=== PATIENT | male | born 1950 | race Caucasian/White ===

== ENCOUNTER 2019-05-27 09:41 | Day surgery (SDC) | payer MEDICARE, BC ==
[2019-05-26 12:13] VITALS: BMI 23.6
[~2019-05-27 09:41] MED LIST: EPINEPHrine 0.3 MG in Ophthalmic Irrigation Solution 500 ML IVP SCH
[2019-05-27] MEDS ORDERED: Cyclopentolate 1% Opth Drop 2 ML BOT ONE (09:54)
[2019-05-27] MEDS ORDERED: Phenylephrine 2.5% Ophth Soln 5 ML BOT ONE (09:54)
[2019-05-27] MEDS ORDERED: Midazolam HCl 2 mg/2 ml Vial ONE (13:23)
[2019-05-27] MEDS ORDERED: Fentanyl 100 MCG/2 ML VIAL ONE ×2 (13:23→14:33)
--- NOTE | 2019-05-27 15:33 | OP ---
DATE OF PROCEDURE: 05/27/2019 PRINCIPAL PREOPERATIVE DIAGNOSIS: Macula off rhegmatogenous retinal detachment, right eye. POSTOPERATIVE DIAGNOSIS: Macula off rhegmatogenous retinal detachment, right eye. NAME OF PROCEDURES PERFORMED: 1. 25-gauge pars plana vitrectomy, right eye. 2. Rhegmatogenous retinal detachment repair, right eye. ESTIMATED BLOOD LOSS: None. SPECIMENS REMOVED: None. COMPLICATIONS: None. ANESTHESIA: MAC with retrobulbar block. SUMMARY OF OPERATION: The patient was identified in the preoperative holding area, where the correct eye being the right eye was marked for surgery. He was taken to the operating room, where MAC anesthesia was induced. A retrobulbar block was administered to the right eye. The block consisted of 1:1 ratio of 4% lidocaine and 0.75% Marcaine. A total of 5 mL was administered. The right eye was then prepped and draped in the usual sterile ophthalmic fashion for surgery. A wire lid speculum was placed. A standard 25-gauge pars plana vitrectomy platform was fashioned with trocars placed approximately 3.5 mm from the limbus. The infusion was noted to be within the vitreous cavity prior to being turned on to an infusion pressure of 30 mmHg. The light pipe Micro vitrector were introduced in the eye under visualization of BIOM viewing system. A macula-off rhegmatogenous retinal detachment was noted from approximately 5 o'clock to 11 o'clock. Numerous defects were noted throughout the retina including 1 at approximately 5:38 and 10 o'clock as well as small defect at 11 o'clock. A careful core and peripheral shave vitrectomy were performed with use of scleral depression, taking care to relieve all traction off the aforementioned defects. Following vitrectomy, all defects were marked with endo cautery followed by creation of a drainage retinotomy with the endo cautery was applied followed by opening with a flute needle. An air-fluid exchange was performed, which allowed for complete flattening of the retina. Endolaser was used to provide barricade around all of the aforementioned defects as well as drainage retinotomy site and peripheral cerclage in the typical fashion with sparing of the 3 and 9 o'clock range. Following Endolaser, the flute needle was reintroduced in the eye to remove any residual subretinal fluid. Subsequently, an air-gas exchange was performed with 15% C3F8. The cannulas were sequentially removed with suturing of the superonasal and inferotemporal sclerotomies with 8-0 Vicryl suture. Following suturing, all sclerotomies were noted to be gas tight. Subconjunctival Ancef and Kenalog were injected. The wire lid speculum was removed followed by application of TobraDex ophthalmic ointment and light patch and shield. The patient tolerated the procedure well and was taken to outpatient recovery area in good condition. Job ID: [id number]
== END 2019-05-27 15:39 | disposition home or self-care (01) ==
LOC: SDC 09:41
PROVIDERS: ATTEND Ophthalmology Retina Specialist
PROC: 08943ZZ Drainage of Right Vitreous, Percutaneous Approach (ICD-10-PCS; principal; 2019-05-27)
DX: H33.001 Unspecified retinal detachment with retinal break, right eye (principal); I10 Essential (primary) hypertension
CPT/HCPCS: J0171; J2250; J3010

== ENCOUNTER 2019-07-13 07:15 | Day surgery (SDC) | payer MEDICARE, BC ==
[2019-07-12 11:11] VITALS: BMI 22.6
[~2019-07-13 07:15] MED LIST changes: +EPINEPHrine 0.3 MG in Ophthalmic Irrigation Solution 500 ML IRR SCH; -EPINEPHrine 0.3 MG in Ophthalmic Irrigation Solution 500 ML IVP SCH; +Fentanyl 100 MCG/2 ML VIAL ONE; +Midazolam HCl 2 mg/2 ml Vial ONE
[2019-07-13] MEDS ORDERED: Phenylephrine 2.5% Ophth Soln 5 ML BOT ONE (07:55)
[2019-07-13] MEDS ORDERED: Cyclopentolate 1% Opth Drop 2 ML BOT ONE (07:55)
[2019-07-13] MEDS ORDERED: Lidocaine 4% PF 5 ML AMP ONE (11:14)
[2019-07-13] MEDS ORDERED: Triamcinolone 40 MG/ML VIAL ONE (11:14)
[2019-07-13] MEDS ORDERED: Maxitrol 0.1% Opth Oint 3.5 GM TUBE ONE (11:14)
[2019-07-13] MEDS ORDERED: CEFAZOLIN 1 GM VIAL ONE (11:14)
[2019-07-13] MEDS ORDERED: Lidocaine 1% PF 5 ML VIAL ONE (11:14)
[2019-07-13] MEDS ORDERED: PROPOFOL 200 MG/20 ML VIAL ONE (11:14)
[2019-07-13] MEDS ORDERED: Bupivacaine PF 0.75% SDV 10 ML ONE (11:14)
--- NOTE | 2019-07-13 14:23 | OP ---
DATE OF PROCEDURE: 07/13/2019 PRINCIPAL PREOPERATIVE DIAGNOSIS: Macula-off tractional retinal detachment, right eye. POSTOPERATIVE DIAGNOSIS: Macula-off tractional retinal detachment, right eye. NAME OF PROCEDURES PERFORMED: 1. 25-gauge pars plana vitrectomy, right eye. 2. Tractional retinal detachment repair, right eye. 3. Endolaser, right eye. 4. Silicone oil fill, right eye. ESTIMATED BLOOD LOSS: None. SPECIMENS REMOVED: None. COMPLICATIONS: None. ANESTHESIA: MAC with retrobulbar block. SUMMARY OF THE OPERATION: The patient was identified in the preoperative holding area, where the correct eye being the right eye was marked for surgery. The patient was taken to the operating room, where MAC anesthesia was induced. A retrobulbar block was administered to the right eye. The block consisted of 1:1 ratio of 4% lidocaine and 0.75% Marcaine. Total of 5 mL was administered. The right eye was then prepped and draped in the usual sterile ophthalmic fashion for surgery. A wire-clip lid speculum was placed. A standard 25-gauge pars plana vitrectomy platform was fashioned with trocars placed approximately 3.5 mm from the limbus. The infusion was noted to be within the vitreous cavity prior to being turned on to an infusion pressure of 30 mmHg. The light pipe and microvitrector were introduced in the eye under visualization of the BIOM viewing system. A macula-off tractional detachment was noted from approximately 2 o'clock to 10 o'clock. Defects were noted inferotemporally and inferonasally with associated grade C proliferative vitreal retinopathy. A limited peripheral shave vitrectomy was performed with the assistance of scleral depression. Using the Bg MAXGRIP forceps, the grade C proliferative vitreal retinopathy was gently removed to allow for significant relaxation of the retina. Following peeling, the Endo cautery was utilized to isabella the aforementioned defects as well as create a superotemporal drainage retinotomy. An air-fluid exchange was subsequently performed, which allowed for complete flattening of the retina. Endolaser was provided around the aforementioned defects as well as around the drainage retinotomy site. The laser also was supplied 2 to 3 rows posterior to the preexisting laser. Following laser, the flute needle was reintroduced in the eye to remove any residual subretinal fluid. Complete silicone oil fill was subsequently achieved. The cannulas were sequentially removed and sutured with 8-0 Vicryl suture. Following suturing, all sclerotomies were noted to be oil tight. The subconjunctival Kenalog and Ancef were injected. The wire-clip lid speculum was removed followed by application of TobraDex ophthalmic ointment and a light patch and shield. The patient tolerated the procedure well and was taken to the outpatient recovery area in good condition. Job ID: [id number]
== END 2019-07-13 12:30 | disposition home or self-care (01) ==
LOC: SDC 07:15
PROVIDERS: ATTEND Ophthalmology Retina Specialist
PROC: 08B43ZZ Excision of Right Vitreous, Percutaneous Approach (ICD-10-PCS; principal; 2019-07-13)
DX: H33.41 Traction detachment of retina, right eye (principal)
CPT/HCPCS: J0171; J0690; J2001; J2250; J2704; J3010; J3301; J3490

== ENCOUNTER 2020-12-05 06:14 | Day surgery (SDC) | payer MEDICARE, BC ==
[2020-12-04 13:25] VITALS: BMI 23.6
[2020-12-05] MEDS ORDERED: EPINEPHrine 0.3 MG in Ophthalmic Irrigation Solution 500 ML IRR SCH (06:30)
[2020-12-05] MEDS ORDERED: Fentanyl 100 MCG/2 ML VIAL ONE (06:32)
[2020-12-05] MEDS ORDERED: Midazolam HCl 2 mg/2 ml Vial ONE (06:32)
[2020-12-05] MEDS ORDERED: Phenylephrine 2.5% Ophth Soln 5 ML BOT ONE (07:12)
[2020-12-05] MEDS ORDERED: Cyclopentolate 1% Ophth Drops 15 ML BOT ONE (07:12)
[2020-12-05] MEDS ORDERED: CEFAZOLIN 1 GM VIAL ONE (07:53)
[2020-12-05] MEDS ORDERED: Triamcinolone 40 MG/ML VIAL ONE (07:53)
[2020-12-05] MEDS ORDERED: Lidocaine 1% PF 5 ML VIAL ONE (07:53)
[2020-12-05] MEDS ORDERED: Bupivacaine PF 0.75% SDV 10 ML ONE (07:53)
[2020-12-05] MEDS ORDERED: PROPOFOL 200 MG/20 ML VIAL ONE (07:53)
[2020-12-05] MEDS ORDERED: Maxitrol 0.1% Opth Oint 3.5 GM TUBE ONE (07:53)
[2020-12-05] MEDS ORDERED: Lidocaine 4% PF 5 ML AMP ONE (07:53)
[2020-12-05] MEDS ORDERED: Indocyanine Green 25 MG/10 ML VIAL ONE (07:53)
== END 2020-12-05 09:35 | disposition home or self-care (01) ==
LOC: SDC 06:14
PROVIDERS: ATTEND Ophthalmology Retina Specialist
PROC: 08T43ZZ Resection of Right Vitreous, Percutaneous Approach (ICD-10-PCS; principal; 2020-12-05)
PROC: 08NE3ZZ Release Right Retina, Percutaneous Approach (ICD-10-PCS; 2020-12-05)
DX: H35.371 Puckering of macula, right eye (principal); Z79.899 Other long term (current) drug therapy
CPT/HCPCS: J0171; J0690; J2250; J2704; J3010; J3301; J3490

== ENCOUNTER 2022-12-02 16:08 | Inpatient (IN) | payer MEDICARE, BC ==
[2022-12-02 17:23] VITALS: BMI 14.3
[2022-12-02] MEDS ORDERED: Ondansetron PF 4 MG/2 ML Vial IVP PRN (17:32)
[2022-12-02] MEDS ORDERED: Ondansetron ODT 4 MG TAB PO PRN (17:32)
[2022-12-02] MEDS ORDERED: Sodium Chloride 0.65% Nasal 44 ML BOT EA NARE PRN (17:36)
[2022-12-02] MEDS ORDERED: Fluticasone Propionate Nasal Spray 16 gm Bottle NASAL SCH (17:36)
[2022-12-02] MEDS ORDERED: Melatonin 3 MG TAB PO PRN (18:02)
[2022-12-02] MEDS: Sodium Chloride 0.9% 1,000 ML IV SCH (18:26)
[2022-12-02] MEDS ORDERED: Lorazepam 2 MG/ML VIAL SLOW IVP SCH (23:59)
[2022-12-03 06:25] LABS: #Monocytes 0.7 thou/uL (0.11-0.59); #Neutrophils 6.7 thou/uL (1.40-6.50); %Basophils 0.1 % (0.0-1.0); %Lymphocytes 2.1 % (21.0-51.0); %Monocytes 9.3 % (0.0-10.0); %Neutrophils 88.2 % (42.0-75.0); Hemoglobin 9.7 g/dL (14.0-18.0); Mean Corpuscular HGB CONC 32.1 g/dL (32.0-36.0); Mean Corpuscular Hemoglobin 33.1 pg (27.0-31.0); Mean Corpuscular Volume 103.1 fl (78.0-98.0); Mean Platelet Volume 11.8 fL (7.4-10.4); Platelet Count 148 10x3/uL (130-400); Red Blood Cell (RBC) Count 2.93 mill/uL (4.70-6.10); White Blood Cell (WBC) Count 7.6 10x3/uL (4.8-10.8)
[2022-12-03 06:42] LABS: Anion Gap 19 mmol/L (10-20); BUN (Urea Nitrogen) 47 mg/dL (8.4-25.7); Calc. Creatinine Clearance 32 mL/min (70-130); Carbon Dioxide 20 mmol/L (23-31); Chloride 111 mmol/L (98-107); Estimated GFR 59; Glucose 96 mg/dL (83-110); Potassium 4.8 mmol/L (3.5-5.1); Sodium 145 mmol/L (136-145)
[2022-12-03] MEDS: Loratadine 10 MG TAB PO SCH (11:25)
[2022-12-03] MEDS: Fluticasone Propionate Nasal Spray 16 gm Bottle NASAL SCH ×2 (13:44→21:54)
[2022-12-03] MEDS ORDERED: Piperacillin/Tazobactam 3.375 GM in Sodium Chloride 0.9% 100 ML IVPB SCH ×2 (14:00→18:00)
[2022-12-03] MEDS: Thiamine HCl 200 MG/2 ML VIAL SLOW IVP SCH (14:23)
[2022-12-03] MEDS: Sodium Chloride 0.9% 1,000 ML IV SCH (14:24)
[2022-12-03 15:45] LABS: Bilirubin Negative (Negative); Blood, Urine 2+ (Negative); CAUTI Indications for Culture Alt mental st,lethar; Clarity Turbid (Clear); Glucose, Urine (Dipstick) Normal (Negative); Ketone, Urine Trace mg/dL (Negative); Leukocyte Negative Leu/uL (Negative); Nitrite Negative (Negative); Protein, Urine (Dipstick) 50 mg/dL (Neg-Trace); RBC/HPF 21-50 HPF (0-3); Specific Gravity, Urine 1.048 (1.002-1.036); Squamous Epithelial 0-3 HPF (0-3); Urobilinogen Normal mg/dL (Less than 2); WBC/HPF 0-3 HPF (0-3); pH, Urine 5.5 (5.0-9.0)
[2022-12-03 15:47] LABS: Bacteria/HPF 1+ HPF (None Seen); Urine Culture Reflex No No
[2022-12-03] MEDS: Piperacillin/Tazobactam 3.375 GM in Sodium Chloride 0.9% 100 ML IVPB SCH (17:23)
[2022-12-03] MEDS ORDERED: hydrOXYzine 25 MG/ML VIAL IM SCH (21:00)
[2022-12-04] MEDS ORDERED: diphenhydrAMINE 50 MG/ML VIAL IVP SCH (01:00)
[2022-12-04] MEDS: Piperacillin/Tazobactam 3.375 GM in Sodium Chloride 0.9% 100 ML IVPB SCH ×3 (01:36→16:51)
[2022-12-04] MEDS ORDERED: Dextrose 5% in Water 1,000 ML IV PRN (04:37)
[2022-12-04] MEDS: Dextrose 50% Abboject 50 ML SYRINGE SLOW IVP PRN (04:45)
[2022-12-04 06:25] LABS: Hemoglobin 8.9 g/dL (14.0-18.0); Mean Corpuscular HGB CONC 31.4 g/dL (32.0-36.0); Mean Corpuscular Hemoglobin 33.1 pg (27.0-31.0); Mean Corpuscular Volume 105.2 fl (78.0-98.0); Mean Platelet Volume 11.6 fL (7.4-10.4); Platelet Count 161 10x3/uL (130-400); RBC Distribution Width 14.3 % (11.5-14.5); Red Blood Cell (RBC) Count 2.69 mill/uL (4.70-6.10); White Blood Cell (WBC) Count 10.2 10x3/uL (4.8-10.8)
[2022-12-04 06:52] LABS: Anion Gap 18 mmol/L (10-20); BUN (Urea Nitrogen) 46 mg/dL (8.4-25.7); Calc. Creatinine Clearance 30 mL/min (70-130); Calcium 9.7 mg/dL (7.8-10.44); Carbon Dioxide 23 mmol/L (23-31); Chloride 111 mmol/L (98-107); Estimated GFR 53; Glucose 117 mg/dL (83-110); Iron 25 ug/dL (65-175); Iron Binding Capacity, Total 118 mcg/dL (261-462); Magnesium 1.9 mg/dL (1.6-2.6); Potassium 3.6 mmol/L (3.5-5.1); Sodium 148 mmol/L (136-145)
[2022-12-04 06:53] LABS: Phosphorus 4.3 mg/dL (2.3-4.7)
[2022-12-04] MEDS: Loratadine 10 MG TAB PO SCH (08:57)
[2022-12-04] MEDS: Folic Acid 1 MG TAB PO SCH (08:57)
[2022-12-04] MEDS: Cyanocobalamin (Vitamin B-12) 1,000 MCG TAB PO SCH (08:57)
[2022-12-04] MEDS: Fluticasone Propionate Nasal Spray 16 gm Bottle NASAL SCH (08:57)
[2022-12-04] MEDS: Sodium Chloride 0.9% 1,000 ML IV SCH (08:57)
[2022-12-04] MEDS: Thiamine HCl 200 MG/2 ML VIAL SLOW IVP SCH (16:50)
[2022-12-04] MEDS ORDERED: Lorazepam 2 MG/ML VIAL SLOW IVP PRN (17:06)
[2022-12-04] MEDS: Mirtazapine 15 MG TAB PO SCH (23:55)
[2022-12-05] MEDS ORDERED: Dextrose 5 %-0.45 % NaCl 1,000 ML IV SCH (02:00)
[2022-12-05] MEDS: Piperacillin/Tazobactam 3.375 GM in Sodium Chloride 0.9% 100 ML IVPB SCH ×3 (02:08→16:12)
[2022-12-05] MEDS: Sodium Chloride 0.9% 1,000 ML IV SCH (03:01)
[2022-12-05 06:01] LABS: #Monocytes 0.5 thou/uL (0.11-0.59); #Neutrophils 9.4 thou/uL (1.40-6.50); %Basophils 0.1 % (0.0-1.0); %Lymphocytes 2.1 % (21.0-51.0); %Monocytes 4.9 % (0.0-10.0); %Neutrophils 92.3 % (42.0-75.0); Hemoglobin 9.3 g/dL (14.0-18.0); Mean Corpuscular HGB CONC 31.2 g/dL (32.0-36.0); Mean Corpuscular Hemoglobin 33.3 pg (27.0-31.0); Mean Corpuscular Volume 106.8 fl (78.0-98.0); Mean Platelet Volume 11.8 fL (7.4-10.4); Platelet Count 175 10x3/uL (130-400); RBC Distribution Width 14.5 % (11.5-14.5); Red Blood Cell (RBC) Count 2.79 mill/uL (4.70-6.10); White Blood Cell (WBC) Count 10.2 10x3/uL (4.8-10.8)
[2022-12-05 06:29] LABS: Anion Gap 18 mmol/L (10-20); BUN (Urea Nitrogen) 45 mg/dL (8.4-25.7); Calc. Creatinine Clearance 29 mL/min (70-130); Calcium 10.2 mg/dL (7.8-10.44); Carbon Dioxide 22 mmol/L (23-31); Chloride 117 mmol/L (98-107); Estimated GFR 52; Glucose 140 mg/dL (83-110); Potassium 4.1 mmol/L (3.5-5.1)
[2022-12-05 06:39] LABS: Sodium 153 mmol/L (136-145)
[2022-12-05] MEDS: Cyanocobalamin (Vitamin B-12) 1,000 MCG TAB PO SCH (09:59)
[2022-12-05] MEDS: Folic Acid 1 MG TAB PO SCH (09:59)
[2022-12-05] MEDS: Loratadine 10 MG TAB PO SCH (09:59)
[2022-12-05] MEDS: Fluticasone Propionate Nasal Spray 16 gm Bottle NASAL SCH (09:59)
[2022-12-05 12:24] LABS: Anion Gap 15 mmol/L (10-20); BUN (Urea Nitrogen) 46 mg/dL (8.4-25.7); Calc. Creatinine Clearance 31 mL/min (70-130); Calcium 9.7 mg/dL (7.8-10.44); Carbon Dioxide 23 mmol/L (23-31); Chloride 116 mmol/L (98-107); Estimated GFR 56; Glucose 162 mg/dL (83-110); Potassium 3.1 mmol/L (3.5-5.1)
[2022-12-05 12:27] LABS: Sodium 151 mmol/L (136-145)
[2022-12-05] MEDS ORDERED: Dextrose 5% in Water 1,000 ML IV SCH (12:45)
[2022-12-05] MEDS: Thiamine HCl 200 MG/2 ML VIAL SLOW IVP SCH (13:12)
[2022-12-05] MEDS: Lorazepam 2 MG/ML VIAL SLOW IVP PRN ×2 (13:13→16:13)
[2022-12-05] MEDS ORDERED: Saccharomyces boulardii 250 MG CAP PO SCH (14:00)
[2022-12-05] MEDS ORDERED: Electrolyte Replacement Protocol FS SCH (14:15)
[2022-12-05] MEDS ORDERED: Potassium Bicarbonate/Cit Ac 20 MEQ TAB PER TUBE SCH (14:15)
[2022-12-05] MEDS: Mirtazapine 15 MG TAB PO SCH (22:12)
[2022-12-06] MEDS: Piperacillin/Tazobactam 3.375 GM in Sodium Chloride 0.9% 100 ML IVPB SCH ×3 (02:06→17:45)
[2022-12-06 06:16] LABS: #Monocytes 0.7 thou/uL (0.11-0.59); #Neutrophils 8.7 thou/uL (1.40-6.50); %Basophils 0.2 % (0.0-1.0); %Eosinophils 0.1 % (0.0-10.0); %Lymphocytes 1.9 % (21.0-51.0); %Monocytes 6.8 % (0.0-10.0); %Neutrophils 90.5 % (42.0-75.0); Mean Corpuscular HGB CONC 29.6 g/dL (32.0-36.0); Mean Corpuscular Hemoglobin 33.4 pg (27.0-31.0); Platelet Count 138 10x3/uL (130-400); RBC Distribution Width 14.8 % (11.5-14.5); Red Blood Cell (RBC) Count 2.99 mill/uL (4.70-6.10); White Blood Cell (WBC) Count 9.6 10x3/uL (4.8-10.8)
[2022-12-06 07:08] LABS: Anion Gap 17 mmol/L (10-20); BUN (Urea Nitrogen) 44 mg/dL (8.4-25.7); Calc. Creatinine Clearance 31 mL/min (70-130); Calcium 9.6 mg/dL (7.8-10.44); Carbon Dioxide 20 mmol/L (23-31); Chloride 118 mmol/L (98-107); Estimated GFR 57; Glucose 116 mg/dL (83-110); Magnesium 1.9 mg/dL (1.6-2.6); Phosphorus 4.2 mg/dL (2.3-4.7); Potassium 3.7 mmol/L (3.5-5.1)
[2022-12-06 07:11] LABS: Sodium 151 mmol/L (136-145)
[2022-12-06] MEDS ORDERED: Magnesium 2 GM/50 ML(in water) 2 GM in Premix Bag 1 BAG IVPB SCH (08:00)
[2022-12-06] MEDS: Lorazepam 2 MG/ML VIAL SLOW IVP PRN ×2 (08:08)
[2022-12-06] MEDS: Cyanocobalamin (Vitamin B-12) 1,000 MCG TAB PO SCH (08:09)
[2022-12-06] MEDS: Folic Acid 1 MG TAB PO SCH (08:09)
[2022-12-06] MEDS: Fluticasone Propionate Nasal Spray 16 gm Bottle NASAL SCH (08:09)
[2022-12-06] MEDS: Loratadine 10 MG TAB PO SCH (08:09)
[2022-12-06] MEDS: Potassium Chloride 20 MEQ TAB PO SCH ×3 (08:09→18:16)
[2022-12-06] MEDS ORDERED: D5W-AA 4.25% with LYTES 1,000 ML BAG(PPN) IV SCH (09:15)
[2022-12-06] MEDS: Amino Acids 4.25 %/Dextrose 5% 1,000 ML IV SCH ×2 (10:25→23:12)
[2022-12-06] MEDS ORDERED: Lorazepam 2 MG/ML VIAL SLOW IVP PRN (11:59)
[2022-12-06] MEDS: Tamsulosin HCl 0.4 MG CAP PO SCH ×2 (12:43→18:16)
[2022-12-06] MEDS: Thiamine HCl 200 MG/2 ML VIAL SLOW IVP SCH (15:04)
[2022-12-06] MEDS: Senokot S 8.6-50 MG TAB PO SCH (19:13)
[2022-12-06] MEDS: Mirtazapine 15 MG TAB PO SCH (19:13)
[2022-12-07] MEDS: Piperacillin/Tazobactam 3.375 GM in Sodium Chloride 0.9% 100 ML IVPB SCH ×3 (02:21→18:25)
[2022-12-07 06:37] LABS: #Monocytes 0.4 thou/uL (0.11-0.59); #Neutrophils 10.1 thou/uL (1.40-6.50); %Basophils 0.1 % (0.0-1.0); %Eosinophils 0.1 % (0.0-10.0); %Lymphocytes 1.9 % (21.0-51.0); %Monocytes 3.9 % (0.0-10.0); %Neutrophils 93.5 % (42.0-75.0); Hemoglobin 8.7 g/dL (14.0-18.0); Mean Corpuscular HGB CONC 30.7 g/dL (32.0-36.0); Mean Corpuscular Hemoglobin 33.2 pg (27.0-31.0); Mean Platelet Volume 12.6 fL (7.4-10.4); Platelet Count 140 10x3/uL (130-400); RBC Distribution Width 14.4 % (11.5-14.5); Red Blood Cell (RBC) Count 2.62 mill/uL (4.70-6.10); White Blood Cell (WBC) Count 10.8 10x3/uL (4.8-10.8)
[2022-12-07] MEDS: Loratadine 10 MG TAB PO SCH (08:04)
[2022-12-07] MEDS: Cyanocobalamin (Vitamin B-12) 1,000 MCG TAB PO SCH (08:04)
[2022-12-07] MEDS: Tamsulosin HCl 0.4 MG CAP PO SCH (08:04)
[2022-12-07] MEDS: Senokot S 8.6-50 MG TAB PO SCH ×3 (08:04→20:21)
[2022-12-07] MEDS: Folic Acid 1 MG TAB PO SCH (08:04)
[2022-12-07 08:07] LABS: Anion Gap 16 mmol/L (10-20); BUN (Urea Nitrogen) 45 mg/dL (8.4-25.7); Calc. Creatinine Clearance 40 mL/min (70-130); Carbon Dioxide 21 mmol/L (23-31); Chloride 115 mmol/L (98-107); Estimated GFR 76; Glucose 92 mg/dL (83-110); Magnesium 2.1 mg/dL (1.6-2.6); Phosphorus 1.9 mg/dL (2.3-4.7); Potassium 3.1 mmol/L (3.5-5.1); Sodium 149 mmol/L (136-145)
[2022-12-07] MEDS: Fluticasone Propionate Nasal Spray 16 gm Bottle NASAL SCH (09:16)
[2022-12-07] MEDS ORDERED: Potassium Bicarbonate/Cit Ac 20 MEQ TAB PO SCH (09:30)
[2022-12-07] MEDS ORDERED: Potassium Chloride 20 MEQ in Premix Bag 1 BAG IVPB SCH (09:45)
[2022-12-07] MEDS ORDERED: Potassium Phosphate 15 MMOL in Sodium Chloride 0.9% 100 ML IVPB SCH (09:45)
[2022-12-07] MEDS ORDERED: PHOS-NAK 1 PKT PACK PO SCH (10:00)
[2022-12-07] MEDS: Amino Acids 4.25 %/Dextrose 5% 1,000 ML IV SCH ×2 (11:28→23:34)
[2022-12-07] MEDS: Thiamine HCl 200 MG/2 ML VIAL SLOW IVP SCH (14:32)
[2022-12-07] MEDS: Mirtazapine 15 MG TAB PO SCH ×2 (20:13→20:21)
[2022-12-07] MEDS ORDERED: Sterile Water 10 ML VIAL FS SCH (21:00)
[2022-12-07] MEDS ORDERED: OLANZapine 10 MG VIAL IM SCH (21:00)
[2022-12-08] MEDS: Piperacillin/Tazobactam 3.375 GM in Sodium Chloride 0.9% 100 ML IVPB SCH ×3 (01:37→17:38)
[2022-12-08 08:12] LABS: QuantiFERON-TB Gold Plus Indeterminate (Negative)
[2022-12-08] MEDS: Senokot S 8.6-50 MG TAB PO SCH ×2 (09:01→20:19)
[2022-12-08] MEDS: Cyanocobalamin (Vitamin B-12) 1,000 MCG TAB PO SCH (09:01)
[2022-12-08] MEDS: Folic Acid 1 MG TAB PO SCH (09:01)
[2022-12-08] MEDS: Tamsulosin HCl 0.4 MG CAP PO SCH (09:01)
[2022-12-08] MEDS: Loratadine 10 MG TAB PO SCH (09:01)
[2022-12-08] MEDS: Fluticasone Propionate Nasal Spray 16 gm Bottle NASAL SCH (09:02)
[2022-12-08 12:39] LABS: HIV (1/2) Antibody/Antigen Non-Reactive (NonReactive)
[2022-12-08] MEDS: Amino Acids 4.25 %/Dextrose 5% 1,000 ML IV SCH (12:48)
[2022-12-08] MEDS: Thiamine HCl 200 MG/2 ML VIAL SLOW IVP SCH (12:48)
[2022-12-08] MEDS: Dextrose 50% Abboject 50 ML SYRINGE SLOW IVP PRN ×2 (13:33→23:29)
[2022-12-08] MEDS ORDERED: Ipratropium/Albuterol 3 ML NEB NEB SCH (15:15)
[2022-12-08] MEDS: D5W-AA 4.25% with LYTES 1,000 ML IV SCH (15:26)
[2022-12-08 15:27] LABS: Glucose 123 mg/dL (83-110)
[2022-12-08] MEDS: Dextrose 5 %-0.45 % NaCl 1,000 ML IV SCH (15:28)
[2022-12-08 19:27] LABS: #Monocytes 0.4 thou/uL (0.11-0.59); #Neutrophils 12.4 thou/uL (1.40-6.50); %Basophils 0.2 % (0.0-1.0); %Eosinophils 0.1 % (0.0-10.0); %Lymphocytes 1.9 % (21.0-51.0); %Monocytes 3.4 % (0.0-10.0); %Neutrophils 93.9 % (42.0-75.0); Hemoglobin 9.2 g/dL (14.0-18.0); Mean Corpuscular HGB CONC 31.4 g/dL (32.0-36.0); Mean Corpuscular Hemoglobin 32.7 pg (27.0-31.0); Mean Corpuscular Volume 104.3 fl (78.0-98.0); Mean Platelet Volume 11.9 fL (7.4-10.4); Platelet Count 170 10x3/uL (130-400); RBC Distribution Width 13.8 % (11.5-14.5); Red Blood Cell (RBC) Count 2.81 mill/uL (4.70-6.10); White Blood Cell (WBC) Count 13.1 10x3/uL (4.8-10.8)
[2022-12-08 19:53] LABS: Anion Gap 15 mmol/L (10-20); BUN (Urea Nitrogen) 42 mg/dL (8.4-25.7); Calc. Creatinine Clearance 45 mL/min (70-130); Calcium 8.6 mg/dL (7.8-10.44); Carbon Dioxide 21 mmol/L (23-31); Chloride 111 mmol/L (98-107); Estimated GFR 86; Glucose 99 mg/dL (83-110); Potassium 2.7 mmol/L (3.5-5.1); Sodium 144 mmol/L (136-145)
[2022-12-08] MEDS: Potassium Chloride 40 MEQ in Sodium Chloride 0.9% 250 ML 250 ML IVPB SCH (20:49)
[2022-12-08] MEDS: Mirtazapine 15 MG TAB PO SCH (20:50)
[2022-12-09] MEDS: Piperacillin/Tazobactam 3.375 GM in Sodium Chloride 0.9% 100 ML IVPB SCH ×3 (01:40→18:21)
[2022-12-09] MEDS: Potassium Chloride 40 MEQ in Sodium Chloride 0.9% 250 ML 250 ML IVPB SCH (01:40)
[2022-12-09] MEDS: D5W-AA 4.25% with LYTES 1,000 ML IV SCH (04:03)
[2022-12-09] MEDS: Dextrose 5 %-0.45 % NaCl 1,000 ML IV SCH ×3 (06:09→23:09)
[2022-12-09] MEDS: Folic Acid 1 MG TAB PO SCH (07:21)
[2022-12-09] MEDS: Cyanocobalamin (Vitamin B-12) 1,000 MCG TAB PO SCH (07:21)
[2022-12-09] MEDS: Loratadine 10 MG TAB PO SCH (07:21)
[2022-12-09] MEDS: Senokot S 8.6-50 MG TAB PO SCH ×2 (07:22→22:46)
[2022-12-09] MEDS: Tamsulosin HCl 0.4 MG CAP PO SCH (07:24)
[2022-12-09 07:55] LABS: Anion Gap 12 mmol/L (10-20); BUN (Urea Nitrogen) 39 mg/dL (8.4-25.7); Calc. Creatinine Clearance 53 mL/min (70-130); Calcium 8.3 mg/dL (7.8-10.44); Carbon Dioxide 21 mmol/L (23-31); Chloride 113 mmol/L (98-107); Estimated GFR 93; Glucose 103 mg/dL (83-110); Potassium 3.8 mmol/L (3.5-5.1); Sodium 142 mmol/L (136-145)
[2022-12-09] MEDS: Fluticasone Propionate Nasal Spray 16 gm Bottle NASAL SCH (08:35)
[2022-12-09] MEDS: Thiamine HCl 200 MG/2 ML VIAL SLOW IVP SCH (13:14)
[2022-12-09] MEDS: Acetaminophen 325 MG TAB PO PRN ×2 (13:25→22:46)
[2022-12-09 13:38] LABS: %CD4 (Helper/Inducer) 32.9 % (30.8-58.5); Absolute CD4 132 /uL (359-1519); Lymphocytes/Gated Cell Count 0.4 x10E3/uL (0.7-3.1); Total Lymphocyte 3 % (Not Estab.)
[2022-12-09] MEDS: Mirtazapine 15 MG TAB PO SCH (22:46)
[2022-12-10] MEDS: Piperacillin/Tazobactam 3.375 GM in Sodium Chloride 0.9% 100 ML IVPB SCH ×3 (03:15→17:20)
[2022-12-10] MEDS: D5W-AA 4.25% with LYTES 1,000 ML IV SCH (04:38)
[2022-12-10] MEDS: Senokot S 8.6-50 MG TAB PO SCH ×2 (07:29→19:56)
[2022-12-10] MEDS: Cyanocobalamin (Vitamin B-12) 1,000 MCG TAB PO SCH (08:51)
[2022-12-10] MEDS: Fluticasone Propionate Nasal Spray 16 gm Bottle NASAL SCH (08:51)
[2022-12-10] MEDS: Loratadine 10 MG TAB PO SCH (08:51)
[2022-12-10] MEDS: Tamsulosin HCl 0.4 MG CAP PO SCH (08:51)
[2022-12-10] MEDS: Folic Acid 1 MG TAB PO SCH (08:51)
[2022-12-10] MEDS: Thiamine HCl 200 MG/2 ML VIAL SLOW IVP SCH (14:49)
[2022-12-10] MEDS: Mirtazapine 15 MG TAB PO SCH (19:56)
[2022-12-10] MEDS: Acetaminophen 325 MG TAB PO PRN (19:56)
[2022-12-10] MEDS: Dextrose 5 %-0.45 % NaCl 1,000 ML IV SCH (20:50)
[2022-12-11] MEDS: Piperacillin/Tazobactam 3.375 GM in Sodium Chloride 0.9% 100 ML IVPB SCH ×3 (01:41→18:43)
[2022-12-11] MEDS: Dextrose 5 %-0.45 % NaCl 1,000 ML IV SCH (01:43)
[2022-12-11 07:05] LABS: #Monocytes 0.4 thou/uL (0.11-0.59); #Neutrophils 6.9 thou/uL (1.40-6.50); %Basophils 0.1 % (0.0-1.0); %Eosinophils 0.4 % (0.0-10.0); %Lymphocytes 2.6 % (21.0-51.0); %Monocytes 5.8 % (0.0-10.0); %Neutrophils 90.7 % (42.0-75.0); Hemoglobin 7.5 g/dL (14.0-18.0); Mean Corpuscular HGB CONC 33.2 g/dL (32.0-36.0); Mean Corpuscular Hemoglobin 34.2 pg (27.0-31.0); Mean Corpuscular Volume 103.2 fl (78.0-98.0); Mean Platelet Volume 11.9 fL (7.4-10.4); Platelet Count 150 10x3/uL (130-400); RBC Distribution Width 13.8 % (11.5-14.5); Red Blood Cell (RBC) Count 2.19 mill/uL (4.70-6.10); White Blood Cell (WBC) Count 7.6 10x3/uL (4.8-10.8)
[2022-12-11 07:15] LABS: Manual Diff?? YES
[2022-12-11 07:31] LABS: ALT (SGPT) 24 U/L (8-55); AST (SGOT) 32 U/L (5-34); Albumin 2.2 g/dL (3.4-4.8); Alkaline Phosphatase 41 U/L (40-110); Anion Gap 10 mmol/L (10-20); BUN (Urea Nitrogen) 31 mg/dL (8.4-25.7); Bilirubin, Total 0.6 mg/dL (0.2-1.2); Calc. Creatinine Clearance 50 mL/min (70-130); Calcium 8.5 mg/dL (7.8-10.44); Carbon Dioxide 24 mmol/L (23-31); Chloride 112 mmol/L (98-107); Estimated GFR 92; Globulin 3.2 g/dL (2.4-3.5); Glucose 79 mg/dL (83-110); Potassium 3.3 mmol/L (3.5-5.1); Protein, Total 5.4 g/dL (5.8-8.1); Sodium 143 mmol/L (136-145)
[2022-12-11 08:27] LABS: Band 6 % (5-11); Lymphocytes 2 % (21-51); Macrocytosis SLIGHT = 6-15 cells HPF (0-5); Monocytes 3 % (0-10); Neutrophil 89 % (42-75); Platelet Morphology Comment Platelets Normal; Polychromasia SLIGHT = 2-3 cells HPF (0-2); Total Cell Count 101
[2022-12-11] MEDS: Senokot S 8.6-50 MG TAB PO SCH ×2 (08:49→21:26)
[2022-12-11] MEDS: Fluticasone Propionate Nasal Spray 16 gm Bottle NASAL SCH (08:49)
[2022-12-11] MEDS: Cyanocobalamin (Vitamin B-12) 1,000 MCG TAB PO SCH (08:49)
[2022-12-11] MEDS: Loratadine 10 MG TAB PO SCH (08:49)
[2022-12-11] MEDS: Folic Acid 1 MG TAB PO SCH (08:49)
[2022-12-11] MEDS: Tamsulosin HCl 0.4 MG CAP PO SCH (08:51)
[2022-12-11] MEDS ORDERED: Potassium Chloride 20 MEQ TAB PO SCH (09:00)
[2022-12-11] MEDS: D5W-AA 4.25% with LYTES 1,000 ML IV SCH (11:05)
[2022-12-11] MEDS: Thiamine HCl 200 MG/2 ML VIAL SLOW IVP SCH (15:39)
[2022-12-11 19:41] VITALS: TEMP 98
[2022-12-11] MEDS: Mirtazapine 15 MG TAB PO SCH (21:26)
[2022-12-12] MEDS: Dextrose 5 %-0.45 % NaCl 1,000 ML IV SCH ×2 (00:35→12:22)
[2022-12-12] MEDS: Piperacillin/Tazobactam 3.375 GM in Sodium Chloride 0.9% 100 ML IVPB SCH ×2 (01:25→10:29)
[2022-12-12] MEDS: D5W-AA 4.25% with LYTES 1,000 ML IV SCH (04:11)
[2022-12-12] MEDS: Folic Acid 1 MG TAB PO SCH (09:01)
[2022-12-12] MEDS: Tamsulosin HCl 0.4 MG CAP PO SCH (09:01)
[2022-12-12] MEDS: Cyanocobalamin (Vitamin B-12) 1,000 MCG TAB PO SCH (09:02)
[2022-12-12] MEDS: Fluticasone Propionate Nasal Spray 16 gm Bottle NASAL SCH (09:02)
[2022-12-12] MEDS: Senokot S 8.6-50 MG TAB PO SCH (09:02)
[2022-12-12] MEDS: Loratadine 10 MG TAB PO SCH (09:02)
[2022-12-12] MEDS: Thiamine HCl 200 MG/2 ML VIAL SLOW IVP SCH (13:40)
[2022-12-12 17:19] VITALS: BP 136/74
== END 2022-12-12 17:11 | disposition swing bed (61) | DRG 204 ==
LOC: T4-A 16:48
PROVIDERS: ADMIT Internal Medicine; ATTEND Internal Medicine
PROC: 02HV33Z Insertion of Infusion Device into Superior Vena Cava, Percutaneous Approach (ICD-10-PCS; principal; 2022-12-02)
PROC: 0DH67UZ Insertion of Feeding Device into Stomach, Via Natural or Artificial Opening (ICD-10-PCS; 2022-12-11)
PROC: B548ZZA Ultrasonography of Superior Vena Cava, Guidance (ICD-10-PCS; 2022-12-11)
PROC: B5181ZA Fluoroscopy of Superior Vena Cava using Low Osmolar Contrast, Guidance (ICD-10-PCS; 2022-12-11)
DX: R91.8 Other nonspecific abnormal finding of lung field (principal); E43 Unspecified severe protein-calorie malnutrition; G93.41 Metabolic encephalopathy; Z68.1 Body mass index [BMI] 19.9 or less, adult; R64 Cachexia; E87.0 Hyperosmolality and hypernatremia; N17.9 Acute kidney failure, unspecified; M48.12 Ankylosing hyperostosis [Forestier], cervical region; I10 Essential (primary) hypertension; R62.7 Adult failure to thrive; R09.81 Nasal congestion; G47.00 Insomnia, unspecified; Z51.5 Encounter for palliative care; R13.12 Dysphagia, oropharyngeal phase; D53.9 Nutritional anemia, unspecified; F17.210 Nicotine dependence, cigarettes, uncomplicated; Z66 Do not resuscitate; E87.6 Hypokalemia; R33.9 Retention of urine, unspecified; E86.0 Dehydration; E16.2 Hypoglycemia, unspecified; R53.81 Other malaise; Z79.899 Other long term (current) drug therapy; F10.20 Alcohol dependence, uncomplicated
CPT/HCPCS: 36415; 36416; 36569; 70450; 70490; 71045; 74018; 74230; 80048; 80053; 81001; 82728; 82947; 83540; 83550; 83735; 83880; 84100; 85025; 85027; 86140; 86361; 86480; 87389; 94640; C1751; J1200; J2060; J2543; J3410; J3411; J3475; J3480; J3490; J7042; J7050; J7070; J7620; J7999